=== PATIENT | female | born 1965 | race Caucasian/White ===

== ENCOUNTER 2020-02-03 03:26 | Inpatient (IN) | payer OTHER ==
[~2020-02-03] VITALS: Ht 152.4 cm; Wt 76.7 kg
[~2020-02-03 03:26] MED LIST: LOP50 PO
[2020-02-03 04:26] LABS: PLATELET COUNT 232 x10^3mcL (130-400); RED CELL DISTRIBUTION WIDTH 13.9 % (11.5-14.5)
[2020-02-03 04:31] LABS: BASOPHIL % 0 % (0-2)
[2020-02-03 04:39] LABS: ALKALINE PHOSPHATASE 166 U/L (46-116); ALT/SGPT 45 U/L (14-59); AST/SGOT 32 U/L (15-37); BILIRUBIN TOTAL 1.57 mg/dL (0.20-1.00); CALCIUM 9.4 mg/dL (8.5-10.1); CARBON DIOXIDE 25.1 mmol/L (21-32); CHLORIDE SERUM 97 mmol/L (98-107); CREATININE SERUM 0.8 mg/dL (0.6-1.0); GFR1 > 60 mL/min; GLUCOSE SERUM 185 mg/dL (74-106); LIPASE 116 IU/L (73-393); SODIUM SERUM 133 mmol/L (136-145); TOTAL PROTEIN, SERUM 8.2 g/dL (6.4-8.2)
[2020-02-03 04:45] LABS: ALBUMIN 3.3 g/dL (3.4-5.0)
[2020-02-03 04:46] LABS: POTASSIUM SERUM 2.9 mmol/L (3.5-5.1)
[2020-02-03] MEDS ORDERED: TOPROL XL25 MG PO (06:12)
[2020-02-03 07:13] LABS: UA SPECIFIC GRAVITY 1.025 (1.005-1.035); microscopic required? YES; urine erythrocyte 3+ (NEGATIVE)
[2020-02-03 08:06] VITALS: BP 115/72
[2020-02-03] MEDS ORDERED: KEFLEX500 M1 PO (11:03)
[2020-02-03 11:05] VITALS: BP 117/71
== END 2020-02-03 12:13 | disposition home or self-care (01) | DRG 463 ==
LOC: ED 03:26 → DU 06:10
PROVIDERS: Emergency Medicine; ADMIT Internal Medicine Pulmonary Disease
DX: N39.0 Urinary tract infection, site not specified (principal); E66.9 Obesity, unspecified; E86.0 Dehydration; I10 Essential (primary) hypertension; E87.6 Hypokalemia; K40.90 Unilateral inguinal hernia, without obstruction or gangrene, not specified as recurrent; N20.0 Calculus of kidney
CPT/HCPCS: G0378; J0696; J1885; J2270; J2405; J7030; J7060